=== PATIENT | female | born 1975 | race Caucasian/White ===

== ENCOUNTER 2018-01-19 08:16 | Inpatient (IN) | payer OTHER ==
[~2018-01-19] VITALS: Ht 154.9 cm; Wt 106.6 kg
[~2018-01-19 08:16] MED LIST: FOLIC ACID0.4 MG; PRENATAL1 TAB
[2018-01-29] MEDS ORDERED: AUGMENTIN XR 11 EACH PO (12:41)
[2018-01-29] MEDS ORDERED: INTESTINEX680 M1 PO (12:42)
[2018-01-29] MEDS ORDERED: TOPROL XL25 M1 PO (12:43)
== END 2018-01-29 14:04 | disposition home or self-care (01) | DRG 603 ==
LOC: ER 08:16 → SEC-K 18:54 → MEDI 18:54
PROC: BW4FZZZ Ultrasonography of Neck (ICD-10-PCS; 2018-01-19)
PROC: BW2FY0Z Computerized Tomography (CT Scan) of Neck using Other Contrast, Unenhanced and Enhanced (ICD-10-PCS; 2018-01-20)
PROC: 0JB53ZX Excision of Left Neck Subcutaneous Tissue and Fascia, Percutaneous Approach, Diagnostic (ICD-10-PCS; principal; 2018-01-27)
DX: L02.414 Cutaneous abscess of left upper limb (principal); L03.211 Cellulitis of face; J06.0 Acute laryngopharyngitis; E66.01 Morbid (severe) obesity due to excess calories; F41.8 Other specified anxiety disorders; R42 Dizziness and giddiness; K29.00 Acute gastritis without bleeding; R59.0 Localized enlarged lymph nodes